=== PATIENT | female | born 2000 | race Caucasian/White ===

== ENCOUNTER 2022-04-16 09:46 | Inpatient (IN) | payer MEDICAID ==
[2022-04-16] MEDS ORDERED: Citric Acid/Sodium Citrate Solution 30 ML Cup PO ONE (10:16)
[2022-04-16] MEDS ORDERED: Sodium Chloride 0.9% 10 ML Syringe FLUSH PRN (10:16)
[2022-04-16] MEDS ORDERED: Sodium Chloride 0.9% 2.5 ML Syringe FLUSH PRN (10:16)
[2022-04-16] MEDS ORDERED: Sodium Chloride 0.9% 20 ML SDV IV PRN (10:16)
[2022-04-16] MEDS ORDERED: Lactated Ringers 1,000 ML IV SCH ×2 (10:30→13:45)
[2022-04-16] MEDS ORDERED: Oxytocin/0.9 % Sodium Chloride 30 UNIT/500 ML BAG IV SCH (10:30)
[2022-04-16] MEDS ORDERED: fentaNYL 100 MCG/2 ML SDV ONE (10:35)
[2022-04-16] MEDS ORDERED: Lidocaine 2% with EPINEPHrine 1:200,000 20 ML SDV ONE (10:46)
[2022-04-16] MEDS ORDERED: Dexamethasone 4 MG/ML 5 ML MDV ONE (10:46)
[2022-04-16] MEDS ORDERED: Lidocaine 2% 5 ML SDV ONE (10:46)
[2022-04-16] MEDS ORDERED: ceFAZolin 1 GM Vial ONE ×2 (10:47)
[2022-04-16] MEDS ORDERED: Phenylephrine HCl In 0.9% NaCl 1 MG/10 ML Vial ONE (10:47)
[2022-04-16] MEDS ORDERED: Oxytocin 10 Units/1 ML SDV ONE (10:52)
[2022-04-16] MEDS ORDERED: Morphine PF 10 MG/10 ML SDV ONE (10:59)
[2022-04-16] MEDS ORDERED: Ondansetron 4 MG/2 ML SDV ONE ×3 (11:22)
[2022-04-16] MEDS ORDERED: Ketorolac 30 MG/ML SDV ONE (11:31)
[2022-04-16] MEDS ORDERED: ePHEDrine 50 MG/ML SDV IVPUSH PRN (11:56)
[2022-04-16] MEDS ORDERED: diphenhydrAMINE 50 MG/ML SDV IVPUSH PRN ×2 (11:56→13:41)
[2022-04-16] MEDS ORDERED: fentaNYL 50 MCG/ML SDV IVPUSH PRN (11:56)
[2022-04-16] MEDS ORDERED: fentaNYL 100 MCG/2 ML SDV IVPUSH PRN (11:56)
[2022-04-16] MEDS ORDERED: Naloxone 0.4 MG/ML SDV IVPUSH PRN (11:56)
[2022-04-16] MEDS ORDERED: Morphine 4 MG/ML VIAL IVPUSH PRN (11:56)
[2022-04-16] MEDS ORDERED: Acetaminophen/oxyCODONE 325-5 MG Tab PO PRN ×2 (11:56→13:41)
[2022-04-16] MEDS ORDERED: Albuterol 0.083% 2.5 MG/3 ML Neb Soln NEB PRN (11:56)
[2022-04-16] MEDS ORDERED: Metoclopramide 10 MG/2 ML SDV IVPUSH PRN (11:56)
[2022-04-16] MEDS ORDERED: Ondansetron 4 MG/2 ML SDV IVPUSH PRN ×3 (11:56→13:41)
[2022-04-16] MEDS ORDERED: HYDROmorphone 1 MG/ML Syringe IVPUSH PRN (11:56)
[2022-04-16] MEDS ORDERED: Phenylephrine HCl In 0.9% NaCl 1 MG/10 ML Vial IVPUSH SCH (12:00)
[2022-04-16] MEDS ORDERED: Methylergonovine 0.2 MG/1 ML Amp IM PRN (13:41)
[2022-04-16] MEDS ORDERED: Bisacodyl 10 MG Supp RECTAL PRN (13:41)
[2022-04-16] MEDS ORDERED: Lanolin 100% Cream 7 GM Tube TOP PRN (13:41)
[2022-04-16] MEDS ORDERED: Oxytocin 10 Units/1 ML SDV IM PRN (13:41)
[2022-04-16] MEDS ORDERED: Misoprostol 200 MCG Tab RECTAL PRN (13:41)
[2022-04-16] MEDS ORDERED: Tranexamic Acid 1,000 MG in Sodium Chloride 0.9% 100 ML IV PRN (13:41)
[2022-04-16] MEDS: Ketorolac 30 MG/ML SDV IVPUSH SCH ×2 (17:27→23:06)
[2022-04-16] MEDS: Acetaminophen 1,000 MG in Premix Bag 1 BAG IV PRN ×2 (17:30→23:11)
[2022-04-16] MEDS: Docusate Sodium 100 MG Cap PO SCH (23:05)
[2022-04-17] MEDS: Ketorolac 30 MG/ML SDV IVPUSH SCH ×3 (06:01→18:23)
[2022-04-17] MEDS: Acetaminophen 1,000 MG in Premix Bag 1 BAG IV PRN (06:06)
[2022-04-17] MEDS: Docusate Sodium 100 MG Cap PO SCH ×2 (08:21→20:44)
[2022-04-17] MEDS ORDERED: Ibuprofen 800 MG Tab PO PRN (17:30)
[2022-04-17] MEDS: Acetaminophen/oxyCODONE 325-5 MG Tab PO PRN (22:00)
[2022-04-18] MEDS: Acetaminophen/oxyCODONE 325-5 MG Tab PO PRN (07:42)
[2022-04-18] MEDS: Docusate Sodium 100 MG Cap PO SCH (09:05)
== END 2022-04-18 11:40 | disposition home or self-care (01) | DRG 786 ==
LOC: MW.OBCHECK 09:46 → MW.OB 09:48 → MW.OBCHECK 10:15 → MW.OB 10:16
PROVIDERS: ADMIT Obstetrics & Gynecology; ATTEND Obstetrics & Gynecology
PROC: 10D00Z1 Extraction of Products of Conception, Low, Open Approach (ICD-10-PCS; principal; 2022-04-16)
DX: O34.211 Maternal care for low transverse scar from previous cesarean delivery (principal); U07.1 COVID-19; O98.52 Other viral diseases complicating childbirth; Z3A.39 39 weeks gestation of pregnancy; Z37.0 Single live birth; Z88.0 Allergy status to penicillin
CPT/HCPCS: 01961; 36415; 36430; 51702; 59025; 85014; 85018; 85027; 86592; 86850; 86900; 86901; 86920; A9270-GY; J0131; J0690; J1100; J1790; J1885; J2274; J2405; J2590; J3010; J7120; P9016; U0002